=== PATIENT | male | born 1975 | race Two or more races ===

== ENCOUNTER 2018-12-29 18:24 | Emergency (ER) | payer OTHER, MEDICAID ==
[2018-12-29 18:40] VITALS: BP 115/78
[2018-12-29] MEDS ORDERED: IBUPROFEN 600 MG TAB PO ONE (18:50)
--- NOTE | 2018-12-29 18:53 | EDPHY ---
H & P Stated Complaint: Head inj/workers comp Time Seen by Provider: 12/29/18 18:38 HPI/ROS: CHIEF COMPLAINT: Head injury HISTORY OF PRESENT ILLNESS: 43-year-old male presents with head injury. 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 He felt dazed initially, but then felt back to normal. He stopped working for few minutes, but then continued working. This morning he awoke with [id number] neck and back pain. He also has a mild headache. No [id number] pain medications taken. No other injuries. REVIEW OF SYSTEMS: complete 10 point ROS negative except as noted in the HPI - Personal History Current Tetanus/Diphtheria Vaccine: Yes - Medical/Surgical History Hx Asthma: No Hx Chronic Respiratory Disease: No Hx Diabetes: No Hx Cardiac Disease: No Hx Renal Disease: No Hx Cirrhosis: No Hx Alcoholism: No Hx HIV/AIDS: Yes Hx Splenectomy or Spleen Trauma: No Other PMH: HIV, anxiety - Social History Smoking Status: Heavy smoker - Physical Exam Exam: General Appearance: Alert, pleasant Head: Atraumatic, no swelling or tenderness Eyes: No conjunctival erythema, PERRLA, EOMI ENT, Mouth: no oral trauma, no bony tenderness Neck: left paraspinous tenderness, no midline tenderness, full range of motion without pain Respiratory: No chest wall tenderness, lungs clear bilaterally Cardiovascular: Regular rate and rhythm Abdomen: Abdomen is soft and nontender Skin: No lacerations, no abrasions Back: No midline T/L/S tenderness Extremities: Pelvis is stable and nontender; no extremity tenderness or deformity Neurological: A&Ox3, normal motor function, normal sensory exam, cranial nerves intact Psychiatric: Mood and affect normal Constitutional: Initial Vital Signs Temperature (C) 36.6 C 12/29/18 18:28 Heart Rate 80 12/29/18 18:28 Respiratory Rate 18 12/29/18 18:28 Blood Pressure 115/78 12/29/18 18:28 O2 Sat (%) 95 12/29/18 18:28 O2 Delivery Mode Room Air Allergies/Adverse Reactions: No Known Allergies Allergy (Unverified 12/29/18 18:32) Home Medications: Medication Instructions Recorded Genvoya Tablet 12/29/18 Klonopin 12/29/18 Singulair 12/29/18 Medical Decision Making ED Course/Re-evaluation: Patient presents after a minor head injury with a mild headache and neck pain. Neurologic exam is normal. Neuroimaging is not indicated. Ibuprofen instructions given. Warning signs discussed. Departure - Departure Disposition: Home, Routine, Self-Care Clinical Impression: Head injury Qualifiers: Encounter type: initial encounter Qualified Code(s): S09.90XA - Unspecified injury of head, initial encounter Neck strain Qualifiers: Encounter type: initial encounter Qualified Code(s): S16.1XXA - Strain of muscle, fascia and tendon at neck level, initial encounter Condition: Good Instructions: Head Injury (ED), Neck Pain (ED) Additional Instructions: Ibuprofen 600 mg 3 times daily while the pain persists. Referrals: JAMEE SIDDIQUI [Primary Care Provider] - As per Instructions
== END 2018-12-29 18:59 | disposition home or self-care (01) ==
DX: S09.90XA Unspecified injury of head, initial encounter (principal); S16.1XXA Strain of muscle, fascia and tendon at neck level, initial encounter; W20.8XXA Other cause of strike by thrown, projected or falling object, initial encounter; Y99.0 Civilian activity done for income or pay